=== PATIENT | male | born 1955 | race Caucasian/White ===

== ENCOUNTER 2023-03-08 07:24 | Emergency (ER) | payer OTHER, SELFPAY ==
[2023-03-08] VITALS (14 sets, daily range): BP systolic 149–205; BP diastolic 76–107; PULSE 54–84; RESP 14–25; TEMP 36.4–36.6; O2SAT 95–99; BMI 28.5
--- NOTE | 2023-03-08 07:37 | DI.RAD.S_ITS ---
PROCEDURE: XR CHEST 1V INDICATIONS: chest pain TECHNIQUE: One view of the chest was acquired. COMPARISON: None. FINDINGS: Surgical changes and devices: None. Lungs and pleura: Lungs are clear. No pleural effusions or pneumothorax. Mediastinum: Mediastinal contours appear normal. Heart size is normal. Bones and chest wall: No suspicious bony lesions. Overlying soft tissues appear unremarkable. IMPRESSION: No acute cardiopulmonary pathology. Dictated by: Booker White M.D. on 03/08/2023 at 8:09 Approved by: Booker White M.D. on 03/08/2023 at 8:10
--- NOTE | 2023-03-08 07:39 | ED_ITS ---
HPI - Chest Pain General Chief Complaint: Chest Pain Stated Complaint: tightness across chest/racing heart T-3 Time Seen by Provider: 03/08/23 07:30 History of Present Illness HPI narrative: 68-year-old male former smoker with history of hypertension and hyperlipidemia as well as a ventricular arrhythmia presents with a chief complaint retrosternal chest pressure for the past few days. He states that it seems to get worse when he rests and improves with any activity. He denies any radiation of the symptoms. He denies associated symptoms such as dizziness, weakness or lightheadedness. He denies shortness of breath, cough, nausea or vomiting. He denies certainly any exertional component and in fact suggest that this actually seems to help his symptoms. He denies exercise intolerance. He did recently travel from [place]. He denies any history of blood clot, known cancer or lower extremity pain, swelling or redness. He does state that prior to his departure his doctor was working him up for reflux and upon his return he is set to have an endoscopy. He denies any alteration in medications or diet. He states at its most intense his discomfort is 3/10 and he is currently asymptomatic Related Data Home Medications Medication Instructions Recorded Confirmed amlodipine 5 mg tablet 5 mg PO DAILY 03/08/23 03/08/23 atorvastatin 10 mg tablet 20 mg PO DAILY 03/08/23 03/08/23 ramipril 03/08/23 Allergies Allergy/AdvReac Type Severity Reaction Status Date / Time No Known Drug Allergies Allergy Verified 03/08/23 08:13 Review of Systems Review of Systems Narrative: GENERAL: Denies chills, fatigue, malaise, fever, sweats. HEENT: Denies sinus pain, ear pain, sore throat, difficulty swallowing, dizziness. RESPIRATORY: Denies dyspnea, cough, wheezing, hemoptysis, sputum. CARDIOVASCULAR: See HPI GASTROINTESTINAL: Denies nausea, vomiting, abdominal pain, diarrhea, c onstipation, melena. : Denies dysuria, frequency, incontinence, hematuria, urinary retention. MUSCULOSKELETAL: denies weakness, joint pain, or bony pain SKIN: Denies rash, skin lesions, or other NEUROLOGIC: Denies weakness, headache, numbness, change in speech, confusion, seizures, incoordination. PSYCHIATRIC: No concerning psychosocial issues. 12 point review of systems is negative except for those stated above Patient History Social History Smoking Status: Former smoker Exam Narrative Exam Narrative: GENERAL: [68] year old patient appears stated age. Well-developed patient, in mild distress. HEAD: Atraumatic. Normocephalic. EYES: Pupils equal round and reactive. Extraocular motions intact. No scleral icterus. No injection or drainage. ENT: Nose without bleeding, purulent drainage. Throat without erythema, tonsillar hypertrophy or exudate. Airway patent. NECK: Trachea midline. Non tender CARDIOVASCULAR: Regular rate and rhythm without murmurs, gallops, or rubs. RESPIRATORY: Clear to auscultation. Breath sounds equal bilaterally. No wheezes, rales, or rhonchi. GASTROINTESTINAL: Abdomen soft, non-tender, nondistended. EXTREMITIES: No edema or joint tenderness. BACK: Nontender without deformity or crepitance. No flank tenderness. NEURO: AOx3. SKIN: No rash or erythema of visible areas Initial Vital Signs Initial Vital Signs: Vital Signs Temperature 97.5 F L 03/08/23 07:30 Pulse Rate 84 03/08/23 07:30 Respiratory Rate 14 03/08/23 07:30 Blood Pressure 205/102 H 03/08/23 07:30 Pulse Oximetry 98 03/08/23 07:30 Oxygen Delivery Method Room Air 03/08/23 07:30 Scores HEART Score Heart Score history: Slightly Suspicious Heart Score EKG: Normal Heart Score Age: > or = 65 years old Heart Score risk factors: No known risk factors Heart Score troponin: < or = to normal limit Heart Score Total: 2 Course Orders Ordered: ED Orders 03/08/23 07:35 Complete Blood Count AUTO DIFF Stat Comprehensive Metabolic Panel Stat D Dimer Stat Lipase Stat NT-proBNP (BNP-Adult 18+) Stat Troponin & CK Cardiac Panel Stat 03/08/23 07:37 XR chest 1V Stat EKG-12 Lead Stat 03/08/23 10:40 Troponin & CK Cardiac Panel Stat Discontinued Medications Aspirin (Aspirin 81 Mg Chew Tab) 324 mg PO NOW ONE Stop: 03/08/23 07:38 Last Admin: 03/08/23 07:46 Dose: 324 mg Documented By: AT Sodium Chloride (Normal Saline 0.9%) 1,000 mls @ 150 mls/hr IV CONT CONRAD Last Infusion: 07/06/23 12:28 Dose: 0 mls/hr Documented By: Admin: 03/08/23 07:59 Dose: 150 mls/hr Documented By: JAMES Vital Signs Vital signs: Vital Signs - 8 hr 03/08/23 08:00 03/08/23 08:00 03/08/23 08:30 Temperature Pulse Rate 64 Respiratory Rate 25 H Blood Pressure 152/107 H 149/77 H Pulse Oximetry 96 Oxygen Delivery Method 03/08/23 08:30 03/08/23 09:00 03/08/23 09:00 Temperature Pulse Rate 54 L 69 Respiratory Rate 21 14 Blood Pressure 155/84 H Pulse Oximetry 96 98 Oxygen Delivery Method 03/08/23 09:30 03/08/23 09:30 03/08/23 10:00 Temperature Pulse Rate 58 L Respiratory Rate 21 Blood Pressure 176/92 H 177/88 H Pulse Oximetry 99 Oxygen Delivery Method 03/08/23 10:00 03/08/23 10:30 03/08/23 10:30 Temperature Pulse Rate 59 L 68 Respiratory Rate 18 14 Blood Pressure 160/93 H Pulse Oximetry 98 96 Oxygen Delivery Method 03/08/23 11:00 03/08/23 11:00 03/08/23 11:30 Temperature Pulse Rate 63 69 Respiratory Rate 23 22 Blood Pressure 158/92 H Pulse Oximetry 96 96 Oxygen Delivery Method 03/08/23 11:31 03/08/23 11:31 03/08/23 12:23 Temperature Pulse Rate 71 68 Respiratory Rate 22 22 Blood Pressure 174/94 H Pulse Oximetry 96 95 Oxygen Delivery Method 03/08/23 12:24 Temperature 97.8 F Pulse Rate Respiratory Rate Blood Pressure 151/76 H Pulse Oximetry Oxygen Delivery Method Room Air MDM - Chest Pain Lab Data 03/08/23 07:35 03/08/23 07:35 Labs: Lab Results 03/08/23 03/08/23 03/08/23 Range/Units 07:35 07:35 07:35 WBC 5.4 (4.5-11.0) X10^3/uL RBC 4.86 (4.5-5.9) X10^6/uL Hgb 16.3 (13.5-17.5) g/dL Hct 46.5 (41-53) % MCV 95.7 (80-100) fL MCH 33.5 (26-34) PG MCHC 35.0 (30-36) % RDW 13.9 (11.6-14.8) % Plt Count 133 L (150-400) X10^3/uL Neut % (Auto) 45.5 L (50-75) % Lymph % (Auto) 38.9 (25-40) % [place] % (Auto) 9.7 (3-14) % Eos % (Auto) 4.9 H (2-4) % Baso % (Auto) 1.0 (0-2) % Neut # (Auto) 2500 (1607-3824) /uL Lymph # (Auto) 2100 (3963-9204) /uL [place] # (Auto) 500 (0-900) /uL Eos # (Auto) 300 (0-450) /uL Baso # (Auto) 100 (0-100) /uL D-Dimer 219 (<500) ng/ml Sodium 140 (137-145) mmol/L Potassium 4.0 (3.4-5.1) mmol/L Chloride 104 (98-107) mmol/L Carbon Dioxide 29 (22-32) mmol/L BUN 14 (9-20) mg/dL Creatinine 0.85 (0.66-1.25) mg/dL Estimated GFR > 60 (>60) mL/min BUN/Creatinine Ratio 16.5 (6-22) Glucose 113 H (80-110) mg/dL Calcium 9.7 (8.4-10.2) mg/dL Total Bilirubin 1.2 (0.2-1.3) mg/dL AST 25 (17-59) IU/L ALT 28 (<50) IU/L Alkaline Phosphatase 85 (38-126) U/L Total Creatine Kinase 39 L (55-170) U/L Troponin I < 0.012 (0.01-0.034) ng/mL NT-Pro-B Natriuret Pep (<125) pg/mL Total Protein 8.7 H (6.3-8.2) g/dL Albumin 4.6 (3.5-5.0) g/dL Globulin 4.1 (1.7-4.1) g/dL Albumin/Globulin Ratio 1.1 (1.0-2.8) Lipase 75 (23-300) U/L 03/08/23 03/08/23 Range/Units 07:35 10:40 WBC (4.5-11.0) X10^3/uL RBC (4.5-5.9) X10^6/uL Hgb (13.5-17.5) g/dL Hct (41-53) % MCV (80-100) fL MCH (26-34) PG MCHC (30-36) % RDW (11.6-14.8) % Plt Count (150-400) X10^3/uL Neut % (Auto) (50-75) % Lymph % (Auto) (25-40) % [place] % (Auto) (3-14) % Eos % (Auto) (2-4) % Baso % (Auto) (0-2) % Neut # (Auto) (7190-1368) /uL Lymph # (Auto) (9043-6438) /uL [place] # (Auto) (0-900) /uL Eos # (Auto) (0-450) /uL Baso # (Auto) (0-100) /uL D-Dimer (<500) ng/ml Sodium (137-145) mmol/L Potassium (3.4-5.1) mmol/L Chloride (98-107) mmol/L Carbon Dioxide (22-32) mmol/L BUN (9-20) mg/dL Creatinine (0.66-1.25) mg/dL Estimated GFR (>60) mL/min BUN/Creatinine Ratio (6-22) Glucose (80-110) mg/dL Calcium (8.4-10.2) mg/dL Total Bilirubin (0.2-1.3) mg/dL AST (17-59) IU/L ALT (<50) IU/L Alkaline Phosphatase (38-126) U/L Total Creatine Kinase 38 L (55-170) U/L Troponin I 0.013 (0.01-0.034) ng/mL NT-Pro-B Natriuret Pep 82 (<125) pg/mL Total Protein (6.3-8.2) g/dL Albumin (3.5-5.0) g/dL Globulin (1.7-4.1) g/dL Albumin/Globulin Ratio (1.0-2.8) Lipase (23-300) U/L ECG Data Interpretation: [0735] EKG is normal sinus rhythm rate [80 ] and free of any signs of ischemia or ectopy. No ST segmental elevation or depression. No T wave inversions MDM Narrative Medical decision making narrative: [68] year old patient presents with chest pain Multiple etiologies for patient's symptoms considered including, but not limited to: [Cardiac ischemia versus pulmonary embolism versus musculoskeletal versus pneumonia versus pneumothorax versus other] Prior Charts reviewed in our EMR Primary Historian: patient Labs reviewed and interpreted by myself: Labs without signs of leukocytosis, anemia, troponin negative x2, D-dimer below age corrected cutoff Imaging reviewed: Chest x-ray without acute findings Patient's history and physical exam are reassuring. Multiple diagnoses considered as noted above. Cardiac ischemia thought unlikely given lack of exertional symptoms or associated cardiac equivalent. EKGs are nonocclusive and troponin x2 negative. Heart score low. Pulmonary embolism considered but D- dimer well below age corrected cutoff. Patient's symptoms improved over duration of stay with above-stated therapies. Findings and discharge diagnosis discussed with patient/family followed by verbalization of understanding Return precautions discussed with patient/family whom verbalize understanding of diagnosis and plan Discharge Plan Departure Patient Disposition: Home Clinical Impression: Atypical chest pain Instructions: DI for Atypical Chest Pain Activity Restrictions/Additional Instructions: *You have been diagnosed with [atypical chest pain, as we discussed your history and physical exam are reassuring, EKGs and labs are reassuring and showed no evidence of heart attack or blood clot.] *What to do: *Please continue to take your regular medications as directed. [ ] New medication prescriptions sent to your pharmacy: [ ] [ ] New medication written as a paper prescription [ ] No new medications given *Please follow up with your primary care provider in 2-3 days, call for an appointment. Let them know you were seen in the Emergency Department and that we ask that you be seen in follow up. We will electronically transmit a record of today's note if your PCP is in our system *If you do not have a primary care provider please contact the [facility] Resource line at [phone]. They will ask some questions about your medical history and help get you set up with a doctor in the community. *Return to Emergency Department if you should have any new, worsening or concerning symptoms, such as [fever greater than 101 F, shaking chills, worsening pain, persistent vomiting or other bothersome symptoms] Prescriptions: No Action atorvastatin 10 mg Tablet 20 mg PO DAILY Rx Instructions: pt takes 20 mg daily ramipril Rx Instructions: takes 10 mg amlodipine 5 mg Tablet 5 mg PO DAILY Referrals: Miscellaneous,Doctor, MD [Primary Care Provider] - Stand Alone Forms: Patient Portal/API
[2023-03-08 07:43] LABS: Add Manual Diff / Slide Review NO; Basophils Absolute Auto 100 /uL (0-100); Eosinophils Absolute Auto 300 /uL (0-450); Eosinophils Percent Auto 4.9 % (2-4); Hematocrit 46.5 % (41-53); Hemoglobin 16.3 g/dL (13.5-17.5); Lymphocytes Absolute Auto 2100 /uL (1100-4500); Lymphocytes Percent Auto 38.9 % (25-40); Mean Corpuscular Hemoglobin 33.5 PG (26-34); Mean Corpuscular Volume 95.7 fL (80-100); Monocytes Absolute Auto 500 /uL (0-900); Monocytes Percent Auto 9.7 % (3-14); Neutrophils Absolute Auto 2500 /uL (1500-7000); Neutrophils Percent Auto 45.5 % (50-75); Platelet Count 133 X10^3/uL (150-400); Red Blood Cell Count 4.86 X10^6/uL (4.5-5.9); Red Cell Distribution Width 13.9 % (11.6-14.8); White Blood Cell Count 5.4 X10^3/uL (4.5-11.0)
[2023-03-08] MEDS: ASPIRIN 81 MG CHEW TAB 324 MG PO (07:46)
[2023-03-08 07:53] LABS: D Dimer 219 ng/ml (<500)
[2023-03-08 07:54] LABS: Alanine Aminotransferase 28 IU/L (<50); Albumin 4.6 g/dL (3.5-5.0); Albumin Globulin Ratio 1.1 (1.0-2.8); Alkaline Phosphatase 85 U/L (38-126); Aspartate Aminotransferase 25 IU/L (17-59); BUN Creatinine Ratio 16.5 (6-22); Bilirubin Total 1.2 mg/dL (0.2-1.3); Blood Urea Nitrogen 14 mg/dL (9-20); Calcium 9.7 mg/dL (8.4-10.2); Carbon Dioxide 29 mmol/L (22-32); Chloride 104 mmol/L (98-107); Creatine Kinase 39 U/L (55-170); Estimated Glomerular Filt Rate > 60 mL/min (>60); Globulin 4.1 g/dL (1.7-4.1); Glucose 113 mg/dL (80-110); HEMOLYSIS < 15 (0-50); Lipase 75 U/L (23-300); Sodium 140 mmol/L (137-145); Total Protein 8.7 g/dL (6.3-8.2)
[2023-03-08] MEDS: SODIUM CHLORIDE 0.9% 1,000 ML 150 ML IV (07:59)
[2023-03-08 08:03] LABS: NT-proBNP (BNP-Adult 18+) 82 pg/mL (<125)
[2023-03-08 08:05] LABS: Troponin I < 0.012 ng/mL (0.01-0.034)
--- NOTE | 2023-03-08 11:10 | PC.NURSE ---
Report from VIVIENNE Su. Pt resting comfortably. Endorses chest tightness and specific area of discomfort in left upper chest. Denies SOB or worsening symptoms.
[2023-03-08 11:20] LABS: Creatine Kinase 38 U/L (55-170)
[2023-03-08 11:32] LABS: Troponin I 0.013 ng/mL (0.01-0.034)
== END 2023-03-08 12:29 | disposition home or self-care (01) ==
PROVIDERS: Emergency Provider Emergency Medicine
DX: R07.89 Other chest pain (principal)
CPT/HCPCS: 36415; 71045; 80053; 82550; 83690; 83880; 84484; 85025; 85379; 93005; 93010; 99283; 99284